=== PATIENT | male | born 1980 | race American Indian/Alaskan Native ===

== ENCOUNTER 2021-04-20 08:06 | Emergency (ER) | payer SELFPAY ==
[2021-04-20] MEDS ORDERED: IBUPROFEN 600 MG TAB PO ONE (08:29)
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
[2021-04-20 08:56] VITALS: BP 108/63
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
== END 2021-04-20 10:15 | disposition home or self-care (01) ==
LOC: ED 08:06
DX: S80.12XA Contusion of left lower leg, initial encounter (principal); S70.01XA Contusion of right hip, initial encounter; V89.2XXA Person injured in unspecified motor-vehicle accident, traffic, initial encounter; Y93.89 Activity, other specified; Y92.89 Other specified places as the place of occurrence of the external cause; Y99.8 Other external cause status
CPT/HCPCS: 99283